=== PATIENT | female | born 1995 | race Caucasian/White ===

== ENCOUNTER 2019-02-12 00:29 | Emergency (ER) | payer OTHER ==
[~2019-02-12] VITALS: Ht 160 cm; Wt 86.2 kg
[2019-02-12 00:30] VITALS: BP 121/76
== END 2019-02-12 01:35 | disposition home or self-care (01) ==
LOC: ER 00:29
DX: M25.511 Pain in right shoulder (principal); M54.2 Cervicalgia; V49.49XA Driver injured in collision with other motor vehicles in traffic accident, initial encounter; Y93.89 Activity, other specified; Y92.488 Other paved roadways as the place of occurrence of the external cause; Y99.8 Other external cause status